=== PATIENT | female | born 1980 | race Caucasian/White ===

== ENCOUNTER 2017-01-01 16:35 | Emergency (ER) | payer OTHER ==
[2017-01-01 16:39] VITALS: BP 159/89; PULSE 90; TEMP 97.9; BMI 29.8
[2017-01-01 18:22] LABS: URINE APPEARANCE SLCLOUDY; URINE BILIRUBIN NEGATIVE (NEGATIVE); URINE BLOOD 1+ (NEGATIVE); URINE COLOR LTYELLOW; URINE GLUCOSE (UA) NEGATIVE (NEGATIVE); URINE KETONE TRACE (NEGATIVE); URINE LEUK ESTERASE NEGATIVE (NEGATIVE); URINE NITRITE NEGATIVE (NEGATIVE); URINE PROTEIN NEGATIVE (NEGATIVE); URINE UROBILINOGEN NEGATIVE mg/dL (0.2-1.0)
--- NOTE | 2017-01-01 18:23 | PDOC ---
History of Present Illness <RicoStacy - Last Filed: 01/01/17 21:39> - History of Present Illness Initial Comments: 01/01/17 18:19 The patient is a 36 year old female, with no significant past medical history, who presents to the emergency room today complaining of nausea, restlessness, and difficulty catching her breath. She explains that she was cooking in the kitchen around 2:30pm, when she began to feel hot and shaky. Since then, she reports feeling very nervous and states that she cannot sit still. She reports feeling very funny - like she is coming out of her skin. She notes that she had increased stress at home over the past week and states that she had more coffee than usual this morning. Denies chest pain, cough. Denies fever, chills, vomiting, abdominal pain. Denies recent illness. Denies leg swelling. Allergies: NKDA Social Hx: Tobacco use ( ppd) PCP: Dr. Tamika Tidwell <Byron Coronado - Last Filed: 01/01/17 22:09> - General Chief Complaint: Shortness of Breath Stated Complaint: S.O.B/ FATIGUE Time Seen by Provider: 01/01/17 17:06 Past History <Abner Gómezssica - Last Filed: 01/01/17 21:39> - Past Medical History Asthma: No Cancer: No Cardiac Disorders: No Diabetes: No HTN: No Seizures: No Thyroid Disease: No Other medical history: denies - Suicide/Smoking/Psychosocial Hx Smoking History: Current every day smoker Have you smoked in the past 12 months: Yes Number of Cigarettes Smoked Daily: 10 If you are a former smoker, when did you quit?: APRIL 2014 Information on smoking cessation initiated: Yes 'Breaking Loose' booklet given: 01/01/17 Hx Alcohol Use: No Drug/Substance Use Hx: No Substance Use Type: None Hx Substance Use Treatment: No <Byron Coronado - Last Filed: 01/01/17 22:09> - Past Medical History Allergies/Adverse Reactions: Allergies Allergy/AdvReac Type Severity Reaction Status Date / Time No Known Drug Allergies Allergy Verified 01/01/17 16:39 Home Medications: Ambulatory Orders NK [No Known Home Medication] 01/01/17 Review of Systems - Review of Systems Comments:: 01/01/17 18:20 "GENERAL/CONSTITUTIONAL: +restless. No fever or chills. HEAD, EYES, EARS, NOSE AND THROAT: No change in vision. No ear pain or discharge. No sore throat. CARDIOVASCULAR: +difficulty catching breath. No chest pain. RESPIRATORY: No cough, wheezing, or hemoptysis. GASTROINTESTINAL: +nausea. No vomiting, diarrhea or constipation. GENITOURINARY: No dysuria, frequency, or change in urination. MUSCULOSKELETAL: No joint or muscle swelling or pain. No neck or back pain. SKIN: No rash NEUROLOGIC: No headache, vertigo, loss of consciousness, or change in strength/ sensation. ENDOCRINE: No increased thirst. No abnormal weight change. HEMATOLOGIC/LYMPHATIC: No anemia, easy bleeding, or history of blood clots. ALLERGIC/IMMUNOLOGIC: No hives or skin allergy." <Byron Coronado - Last Filed: 01/01/17 22:09> *Physical Exam - Vital Signs Last Vital Signs Temp Pulse Resp BP Pulse Ox 97.9 F 90 18 159/89 100 01/01/17 16:37 01/01/17 16:37 01/01/17 16:37 01/01/17 16:37 01/01/17 17:35 <Stacy Gómez - Last Filed: 01/01/17 21:39> - Vital Signs Last Vital Signs Temp Pulse Resp BP Pulse Ox 97.9 F 90 18 159/89 100 01/01/17 16:37 01/01/17 16:37 01/01/17 16:37 01/01/17 16:37 01/01/17 17:35 - Physical Exam Comments: 01/01/17 18:23 "GENERAL: Awake, alert, and fully oriented, in no acute distress HEAD: No signs of trauma EYES: PERRLA, EOMI, sclera anicteric, conjunctiva clear ENT: Auricles normal inspection, hearing grossly normal, nares patent, oropharynx clear without exudates. Moist mucosa NECK: Nontender, no stepoffs, Normal ROM, supple, no lymphadenopathy, JVD, or masses LUNGS: Breath sounds equal, clear to auscultation bilaterally. No wheezes, and no crackles HEART: Regular rate and rhythm, normal S1 and S2, no murmurs, rubs or gallops ABDOMEN: Soft, nontender, normoactive bowel sounds. No guarding, no rebound. No masses EXTREMITIES: Normal range of motion, no edema. No clubbing or cyanosis. No cords, erythema, or tenderness NEUROLOGICAL: Cranial nerves II through XII intact. 5/5 strength and sensation in all extremities, Normal speech, normal gait SKIN: Warm, Dry, normal turgor, no rashes or lesions noted. " <Byron Coronado - Last Filed: 01/01/17 22:09> Heart Score/ECG Review - History History: Slightly suspicious - Electrocardiogram EKG: Normal - Age Age: </= 45 - Risk Factors Based on the list above the patient has:: No risk factors known - Troponin Troponin: </= normal limit - Score Heart Score - Total: 0 - ECG Impressions Comment:: 01/01/17 18:30 NSR, no DAVID/STDs, no TWIs, intervals wnl, axis wnl <Byron Coronado - Last Filed: 01/01/17 22:09> ED Treatment Course - LABORATORY CBC & Chemistry Diagram: 01/01/17 18:10 01/01/17 18:10 - ADDITIONAL ORDERS Additional order review: Laboratory Results 01/01/17 01/01/17 01/01/17 18:10 18:10 18:10 D-Dimer Sodium 134 L Potassium 4.9 D Chloride 103 Carbon Dioxide 25 Anion Gap 6 L BUN 17 D Creatinine 0.7 D Creat Clearance w eGFR > 60 Random Glucose 96 Calcium 9.6 Total Bilirubin 0.2 D AST 14 L D ALT 17 D Alkaline Phosphatase 82 D Creatine Kinase 117 Troponin I < 0.02 Total Protein 7.9 Albumin 4.1 TSH 1.22 Urine Color Ltyellow Urine Appearance Slcloudy Urine pH 5.0 Urine Protein Negative Urine Glucose (UA) Negative Urine Ketones Trace H Urine Blood 1+ H Urine Nitrite Negative Urine Bilirubin Negative Urine Urobilinogen Negative Urine RBC 1 Urine WBC 4 Ur Epithelial Cells Few Urine Mucus Rare Urine HCG, Qual Negative 01/01/17 18:10 D-Dimer 444 H Sodium Potassium Chloride Carbon Dioxide Anion Gap BUN Creatinine Creat Clearance w eGFR Random Glucose Calcium Total Bilirubin AST ALT Alkaline Phosphatase Creatine Kinase Troponin I Total Protein Albumin TSH Urine Color Urine Appearance Urine pH Urine Protein Urine Glucose (UA) Urine Ketones Urine Blood Urine Nitrite Urine Bilirubin Urine Urobilinogen Urine RBC Urine WBC Ur Epithelial Cells Urine Mucus Urine HCG, Qual 01/01/17 18:10 RBC 5.02 D MCV 77.8 L MCHC 32.3 RDW 17.6 H D MPV 8.6 Neutrophils % 88.1 H D Lymphocytes % 9.1 D Monocytes % 2.4 L Eosinophils % 0.1 D Basophils % 0.3 - RADIOLOGY Radiograph Interpretation: 01/01/17 19:23 EXAM#: TYPE/EXAM: RESULT: [id number] RAD/CHEST PA LAT HISTORY PROVIDED: Shortness of breath PA and lateral projections of the chest are submitted. The heart size is within normal limits. The lung kitchen are free of pulmonary infiltrates or pleural effusions. IMPRESSION: No acute disease. Reported By: Keith Taylor MD 01/01/17191101/01/17 21:39 EXAM#: TYPE/EXAM: RESULT: [id number] CT/CHEST CTA HISTORY PROVIDED: Rule out PE. TECHNIQUE: Sequential axial images were obtained from the thoracic inlet through the domes of the diaphragm following the administration of intravenous contrast material. CTA pulmonary embolism protocol was utilized, including coronal and oblique coronal MIP images. There is good opacification of the central pulmonary vasculature with no filling defects suspicious for pulmonary embolism. The lung kitchen are free of pulmonary masses, areas of acute consolidation or pleural effusions. No mediastinal masses, fluid collections or lymphadenopathy are identified. The heart is not enlarged. There is no evidence of thoracic aortic aneurysm or dissection. Evaluation of the upper abdomen demonstrates cystic changes within the central portion of the left kidney. This most likely represents parapelvic cysts, however, hydronephrosis cannot be excluded without delayed images. IMPRESSION: 1. No evidence of pulmonary embolism or acute pathology within the chest. 2. Cystic changes central portion of the left kidney suspicious for parapelvic cysts versus hydronephrosis. Please see above discussion. Reported By: Keith Taylor MD 01/01/172135 <Stacy Gómez - Last Filed: 01/01/17 21:39> - LABORATORY CBC & Chemistry Diagram: 01/01/17 18:10 01/01/17 18:10 - RADIOLOGY Radiology Studies Ordered: Category Date Time Status CHEST PA & LAT [RAD] Stat Radiology 01/01/17 17:19 Ordered <Byron Coronado - Last Filed: 01/01/17 22:09> Medical Decision Making - Medical Decision Making 01/01/17 18:23 36 F with no PMH presenting with 1 day of restlessness, associated with difficulty catching breath and nausea. Pt endorses increased stressors in life, so symptoms are likely anxiety/stress-related. However, will r/o PE given acute onset of SOB. ACS unlikely given normal EKG. Pt with clear lung sounds, making PNA or asthma/COPD unlikely. - Labs, trop, Ddimer - CXR 01/01/17 22:07 Ddimer elevated. CTPE negative for PE. Pt reassessed - reports that she feels much better. Vitals stable, pt with no acute complaints currently. Stable for DC. Pt to f/u with PMD. <Byron Coronado - Last Filed: 01/01/17 22:09> *DC/Admit/Observation/Transfer <Abner Gmóezssica - Last Filed: 01/01/17 21:39> - Attestations Physician Attestion: 01/01/17 22:09 I, Dr. Byron Coronado MD, attest that this document has been prepared under my direction and personally reviewed by me in its entirety. I further attest, that it accurately reflects all work, treatment, procedures and medical decision -making performed by me. <Byron Coronado - Last Filed: 01/01/17 22:09> Diagnosis at time of Disposition: Palpitations - Discharge Dispostion Disposition: HOME - Referrals Referrals: Tamika Tidwell MD [Primary Care Provider] - - Patient Instructions Printed Discharge Instructions: DI for Palpitations Additional Instructions: Please follow up with your primary care doctor within 1 week for further work up of your palpitations and shortness of breath. If you experience worsening symptoms, chest pain, or any other concerning symptoms, return to the ER immediately.
[2017-01-01 18:36] LABS: URINE MUCUS RARE; URINE RBC 1 /hpf (0-3); URINE WBC 4 /hpf (3-5)
[2017-01-01 18:37] LABS: BASOPHIL 0.3 % (0-2.0); EOSINOPHIL 0.1 % (0-4.5); MCH 25.1 pg (25.7-33.7); MCHC 32.3 g/dl (32.0-36.0); MEAN CELL VOLUME 77.8 fl (80-96); MEAN PLT VOLUME 8.6 fl (7.5-11.1); NEUTROPHILS 88.1 % (42.8-82.8); PLATELET COUNT 289 K/MM3 (134-434); RDW 17.6 % (11.6-15.6)
[2017-01-01 18:57] LABS: ALBUMIN 4.1 g/dl (3.4-5.0); ANION GAP 6 (8-16); BILIRUBIN,TOTAL 0.2 mg/dL (0.2-1.0); CALCIUM 9.6 mg/dL (8.5-10.1); CO2 25 mmol/L (21-32); CREATININE 0.7 mg/dL (0.55-1.02); GLUCOSE,RANDOM 96 mg/dL (74-106); SGOT/AST 14 U/L (15-37); SGPT/ALT 17 U/L (12-78); TOT PROT 7.9 g/dl (6.4-8.2)
[2017-01-01 18:59] LABS: CPK 117 IU/L (26-192); TROPONIN I < 0.02 ng/ml (0.00-0.05)
[2017-01-01 19:05] LABS: ALK PHOS 82 U/L (45-117); THYROID STIMULATING HORMONE 1.22 uIU/ml (0.358-3.74)
[2017-01-01] MEDS ORDERED: SODIUM CHLORIDE 1,000 ML IV STA (19:31)
[2017-01-01 19:59] LABS: PLATELET COMMENT2 NO CLOTTING DETECTED; PLATELET COMMENT3 FEW LARGE PLTS; PLATELET ESTIMATE ADEQUATE (NORMAL)
--- NOTE | 2017-01-02 09:15 | EKG ---
Test Reason : Blood Pressure : / mmHG Vent. Rate : 078 BPM Atrial Rate : 078 BPM P-R Int : 144 ms QRS Dur : 076 ms QT Int : 420 ms P-R-T Axes : 021 046 042 degrees QTc Int : 478 ms POOR DATA QUALITY, INTERPRETATION MAY BE ADVERSELY AFFECTED SINUS RHYTHM WITH MARKED SINUS ARRHYTHMIA POSSIBLE LEFT ATRIAL ENLARGEMENT WHEN COMPARED WITH ECG OF 08-OCT-2013 10:54, T WAVE INVERSION NOW EVIDENT IN ANTERIOR LEADS Confirmed by AKANKSHA ANDERSON MD ([id number]) on 01/02/2017 9:15:23 AM Referred By: Confirmed By:AKANKSHA ANDERSON MD
== END 2017-01-01 22:29 | disposition home or self-care (01) ==
LOC: JER 16:35
PROC: 3E0337Z Introduction of Electrolytic and Water Balance Substance into Peripheral Vein, Percutaneous Approach (ICD-10-PCS; principal; 2017-01-01)
DX: R00.2 Palpitations (principal)
CPT/HCPCS: 36415; 71020-TC; 71275-TC; 80053; 81003; 81015; 84443; 84484; 84703; 85025; 85379; 93005; 93010; 99284-25